=== PATIENT | male | born 1965 | race Caucasian/White ===

== ENCOUNTER → 2016-02-19 | Outpatient (CLI) | payer BC | LOC: YCFC.O 10:21 | PROVIDERS: ATTEND Nurse Practitioner Family | DX: E53.8 Deficiency of other specified B group vitamins (principal); Z12.5 Encounter for screening for malignant neoplasm of prostate; Z13.220 Encounter for screening for lipoid disorders ==

== ENCOUNTER → 2018-08-21 | Outpatient (CLI) | payer BC ==
--- NOTE | 2018-08-21 13:28 | RAD ---
EXAM DESCRIPTION: Chest,2 Views CLINICAL HISTORY: ESSENTIAL HYPERTENSION COMPARISON: Previous chest x-ray November 26, 2009 TECHNIQUE: PA/lateral FINDINGS: There is no acute appearing cardiac or pulmonary abnormality. Heart size is normal with normal pulmonary vascularity. No pleural effusion or pneumothorax. Lungs are clear with no consolidating infiltrate. Lateral view shows intact sternum and T-spine. IMPRESSION: No acute process is identified in the chest. Electronically signed by: José Miguel Hagen MD 08/21/2018 1:26 PM CDT
== END ==
LOC: LAB.O 11:54
PROVIDERS: ATTEND Nurse Practitioner Family
DX: I25.10 Atherosclerotic heart disease of native coronary artery without angina pectoris (principal); I10 Essential (primary) hypertension; R63.5 Abnormal weight gain

== ENCOUNTER → 2020-02-04 | Outpatient (CLI) | payer BC | LOC: GMAM 11:54 | PROVIDERS: ATTEND Family Medicine | DX: R71.8 Other abnormality of red blood cells (principal); B97.21 SARS-associated coronavirus as the cause of diseases classified elsewhere; R09.02 Hypoxemia ==